=== PATIENT | male | born 1990 | race Two or more races ===

== ENCOUNTER 2019-04-18 19:00 | Inpatient (IN) | payer OTHER ==
[2019-04-18 20:15] VITALS: BP 112/65
[2019-04-18] MEDS ORDERED: ALBUTEROL SULFATE HFA 90 MCG/PUFF 8 GM INHALER IH PRN (23:45)
[2019-04-18] MEDS ORDERED: NICOTINE 14 MG/24 HOUR PATCH TD PRN (23:45)
[2019-04-18] MEDS ORDERED: PETROLATUM,WHITE 28 GM JELLY TP PRN (23:45)
[2019-04-18] MEDS ORDERED: MAG HYDROX/AL HYDROX/SIMETH ES 30 ML SUSPENSION UDCUP PO PRN (23:45)
[2019-04-18] MEDS ORDERED: LOPERAMIDE HCL 2 MG CAPSULE PO PRN (23:45)
[2019-04-18] MEDS ORDERED: ONDANSETRON HCL 4 MG TABLET PO PRN (23:45)
[2019-04-18] MEDS ORDERED: CloNIDine HCL 0.1 MG TABLET PO PRN (23:45)
[2019-04-18] MEDS ORDERED: DOCUSATE SODIUM 100 MG CAPSULE PO PRN (23:45)
[2019-04-18] MEDS ORDERED: GuaiFENesin/D-METHORPHAN [SUGAR-FREE] 200-20MG/10 ML SYRUP UDCUP PO PRN (23:45)
[2019-04-18] MEDS ORDERED: IBUPROFEN 400 MG TABLET PO PRN (23:45)
[2019-04-18] MEDS ORDERED: MAGNESIUM HYDROXIDE SUSPENSION 30 ML UDCUP PO PRN (23:45)
[2019-04-18] MEDS ORDERED: ACETAMINOPHEN 325 MG TABLET PO PRN (23:45)
[2019-04-19] VITALS (8 sets, daily range): BP systolic 94–123; BP diastolic 54–90
[2019-04-19 04:35] LABS: APPEARANCE,URINE CLOUDY (CLEAR); BILIRUBIN,URINE NEGATIVE (NEGATIVE); GLUCOSE, URINE (UA) NEGATIVE (NEGATIVE); KETONES,URINE NEGATIVE (NEGATIVE); LEUKOCYTE ESTERASE ,URINE NEGATIVE (NEGATIVE); NITRATE,URINE NEGATIVE (NEGATIVE); OCCULT BLOOD,URINE NEGATIVE (NEGATIVE); PH,URINE 6.5 (5.0-8.0); PROTEIN,URINE NEGATIVE (NEGATIVE)
[2019-04-19 04:51] LABS: AMPHET/METH SCREEN,URINE NEGATIVE (NEGATIVE); BARBITURATE SCREEN, URINE NEGATIVE (NEGATIVE); BENZODIAZEPINES SCREEN,URINE NEGATIVE (NEGATIVE); CANNABINOID SCREEN,URINE NEGATIVE (NEGATIVE); COCAINE SCREEN,URINE NEGATIVE (NEGATIVE); METHADONE SCREEN, URINE NEGATIVE (NEGATIVE); OPIATE SCREEN,URINE NEGATIVE (NEGATIVE); PHENCYCLIDINE SCREEN,URINE NEGATIVE (NEGATIVE)
[2019-04-19 08:10] LABS: BASOPHILS % (AUTO) 0.4 % (0.0-2.0); EOSINOPHILS % (AUTO) 1.2 % (1.0-6.0); HEMATOCRIT 41.9 % (41-53); HEMOGLOBIN 13.9 g/dL (13.5-17.5); LYMPHOCYTES # (AUTO) 1.7 K/uL (1.0-4.8); LYMPHOCYTES % (AUTO) 39.4 % (22.0-44.0); MEAN CORPUSCULAR HGB CONC 33.1 G/dL (31.0-37.0); MEAN CORPUSCULAR VOLUME 97 fL (80-100); MONOCYTES # (AUTO) 0.7 K/uL (0.1-1.0); MONOCYTES % (AUTO) 16.1 % (2.0-9.0); NEUTROPHILS # (AUTO) 1.9 K/uL (1.8-7.7); NEUTROPHILS % (AUTO) 42.9 % (40.0-70.0); PLATELET COUNT (AUTO) 162 K/uL (150-450); RED BLOOD CELL COUNT(AUTO) 4.33 MIL/uL (4.50-5.90); RED CELL DISTRIBUTION WIDTH 14.1 % (11.5-14.5)
[2019-04-19 08:45] LABS: ALANINE AMINOTRANSFERASE 25 U/L (12-78); ALBUMIN 3.6 g/dL (3.4-5.0); ALKALINE PHOSPHATASE 65 U/L (46-116); ANION GAP 8 mmol/L (8-16); ASPARTATE AMINOTRANSFERASE 20 U/L (15-37); BILIRUBIN,TOTAL 0.9 mg/dL (0.1-1.0); CALCIUM, TOTAL 8.9 mg/dL (8.8-10.5); CARBON DIOXIDE 28 mmol/L (22-29); CHLORIDE 106 mmol/L (98-107); CHOL/HDL RATIO 2.8 (4.2-7.3); CHOLESTEROL 115 mg/dL (131-200); CREATININE 0.74 mg/dL (0.60-1.30); GLOMERULAR FILTR. RATE CALC > 60 mL/min (>60); GLUCOSE,RANDOM 82 mg/dL (70-110); HDL CHOLESTEROL 41 mg/dL (40-60); LDL CHOL (CALC.) 66 mg/dL (0-130); POTASSIUM 4.3 mmol/L (3.5-5.1); SODIUM SERUM 142 mmol/L (136-145); TOTAL PROTEIN, SERUM 6.9 g/dL (6.4-8.2); TRIGLYCERIDES 42 mg/dL (15-150); UREA NITROGEN, BLOOD 10 mg/dL (7-18)
[2019-04-19] MEDS: FLUoxetine HCL 20 MG CAPSULE PO SCH (10:04)
[2019-04-19] MEDS: OLANZapine 5 MG TABLET PO SCH ×2 (10:04→20:37)
[2019-04-20 05:20] VITALS: BP 93/55
[2019-04-20 07:47] VITALS: BP 103/70
[2019-04-20] MEDS: FLUoxetine HCL 20 MG CAPSULE PO SCH (07:54)
[2019-04-20] MEDS: OLANZapine 5 MG TABLET PO SCH ×2 (07:54→19:52)
[2019-04-20 11:53] VITALS: BP 99/55
[2019-04-20 20:04] VITALS: BP 106/58
[2019-04-20 23:06] VITALS: BP 103/51
[2019-04-21 05:37] VITALS: BP 104/65
[2019-04-21 07:29] VITALS: BP 106/60
[2019-04-21] MEDS: OLANZapine 5 MG TABLET PO SCH (08:27)
[2019-04-21] MEDS: FLUoxetine HCL 20 MG CAPSULE PO SCH (08:27)
[2019-04-21 11:46] VITALS: BP 109/76
== END 2019-04-21 15:10 | DRG 885 ==
LOC: 6S 19:00
PROVIDERS: ADMIT Internal Medicine; ATTEND Internal Medicine
DX: F25.1 Schizoaffective disorder, depressive type (principal); R45.851 Suicidal ideations; D72.819 Decreased white blood cell count, unspecified; F19.10 Other psychoactive substance abuse, uncomplicated; Z79.899 Other long term (current) drug therapy
CPT/HCPCS: 80307; 83036; 84443

== ENCOUNTER 2020-09-17 11:02 | Inpatient (IN) | payer MEDICAID, OTHER ==
[~2020-09-17] VITALS: Ht 165.1 cm; Wt 59.0 kg
[2020-09-17 12:10] LABS: BASOPHILS % (AUTO) 0.2 % (0.0-2.0); EOSINOPHILS % (AUTO) 0.9 % (1.0-6.0); HEMOGLOBIN 13.5 g/dL (13.5-17.5); LYMPHOCYTES # (AUTO) 1.4 K/uL (1.0-4.8); LYMPHOCYTES % (AUTO) 16.6 % (22.0-44.0); MEAN CORPUSCULAR HEMOGLOBIN 31.2 pg (26.0-34.0); MEAN CORPUSCULAR HGB CONC 34.5 G/dL (31.0-37.0); MEAN CORPUSCULAR VOLUME 91 fL (80-100); MONOCYTES # (AUTO) 0.9 K/uL (0.1-1.0); MONOCYTES % (AUTO) 10.8 % (2.0-9.0); NEUTROPHILS # (AUTO) 6.1 K/uL (1.8-7.7); NEUTROPHILS % (AUTO) 71.5 % (40.0-70.0); PLATELET COUNT (AUTO) 235 K/uL (150-450); RED BLOOD CELL COUNT(AUTO) 4.31 MIL/uL (4.50-5.90); RED CELL DISTRIBUTION WIDTH 13.6 % (11.5-14.5)
[2020-09-17 12:23] LABS: AMPHET/METH SCREEN,URINE POSITIVE (NEGATIVE); BARBITURATE SCREEN, URINE NEGATIVE (NEGATIVE); BENZODIAZEPINES SCREEN,URINE NEGATIVE (NEGATIVE); CANNABINOID SCREEN,URINE NEGATIVE (NEGATIVE); COCAINE SCREEN,URINE NEGATIVE (NEGATIVE); METHADONE SCREEN, URINE NEGATIVE (NEGATIVE); OPIATE SCREEN,URINE NEGATIVE (NEGATIVE)
[2020-09-17 12:25] LABS: ANION GAP 9 mmol/L (8-16); CALCIUM, TOTAL 9.1 mg/dL (8.8-10.5); CARBON DIOXIDE 30 mmol/L (22-29); CHLORIDE 101 mmol/L (98-107); GLOMERULAR FILTR. RATE CALC > 60 mL/min (>60); GLUCOSE,RANDOM 123 mg/dL (70-110); POTASSIUM 3.5 mmol/L (3.5-5.1); SODIUM SERUM 140 mmol/L (136-145); UREA NITROGEN, BLOOD 19 mg/dL (7-18)
[2020-09-17 12:25] LABS: PHENCYCLIDINE SCREEN,URINE NEGATIVE (NEGATIVE)
[2020-09-17 12:32] LABS: ALANINE AMINOTRANSFERASE 25 U/L (12-78); ALBUMIN 3.3 g/dL (3.4-5.0); ALKALINE PHOSPHATASE 96 U/L (46-116); ASPARTATE AMINOTRANSFERASE 21 U/L (15-37); BILIRUBIN,TOTAL 0.5 mg/dL (0.1-1.0); TOTAL PROTEIN, SERUM 6.9 g/dL (6.4-8.2)
[2020-09-17] MEDS ORDERED: OLANZapine 5 MG TABLET PO ONE (12:45)
[2020-09-17] MEDS ORDERED: ZOLPIDEM TARTRATE 10 MG TABLET PO PRN (13:45)
[2020-09-17] MEDS ORDERED: HALOPERIDOL 5 MG TABLET PO PRN (13:45)
[2020-09-17] MEDS ORDERED: LORazepam 2 MG TABLET PO PRN (13:45)
[2020-09-17 15:03] LABS: COVID AG,FIA SOURCE NASOPHARYNGEAL
[2020-09-17 18:24] VITALS: BP 107/68
[2020-09-18 03:20] VITALS: BP 110/72
[2020-09-18 06:52] LABS: CHOL/HDL RATIO 3.2 (4.2-7.3)
[2020-09-18] MEDS ORDERED: PETROLATUM,WHITE 28 GM JELLY TP PRN (07:15)
[2020-09-18] MEDS ORDERED: ACETAMINOPHEN 325 MG TABLET PO PRN (07:15)
[2020-09-18] MEDS ORDERED: GuaiFENesin/D-METHORPHAN [SUGAR-FREE] 200-20MG/10 ML SYRUP UDCUP PO PRN (07:15)
[2020-09-18] MEDS ORDERED: ALBUTEROL SULFATE HFA 90 MCG/PUFF 8 GM INHALER IH PRN (07:15)
[2020-09-18] MEDS ORDERED: DOCUSATE SODIUM 100 MG CAPSULE PO PRN (07:15)
[2020-09-18] MEDS ORDERED: ONDANSETRON HCL 4 MG TABLET PO PRN (07:15)
[2020-09-18] MEDS ORDERED: LOPERAMIDE HCL 2 MG CAPSULE PO PRN (07:15)
[2020-09-18] MEDS ORDERED: NICOTINE 14 MG/24 HOUR PATCH TD PRN (07:15)
[2020-09-18] MEDS ORDERED: MAG HYDROX/AL HYDROX/SIMETH ES 30 ML SUSPENSION UDCUP PO PRN (07:15)
[2020-09-18] MEDS ORDERED: MAGNESIUM HYDROXIDE SUSPENSION 30 ML UDCUP PO PRN (07:15)
[2020-09-18] MEDS ORDERED: IBUPROFEN 400 MG TABLET PO PRN (07:15)
[2020-09-18] MEDS ORDERED: CloNIDine HCL 0.1 MG TABLET PO PRN (07:15)
[2020-09-18 16:00] VITALS: BP 122/65
[2020-09-18] MEDS: OLANZapine 5 MG TABLET PO SCH (20:22)
[2020-09-19] MEDS: OLANZapine 5 MG TABLET PO SCH ×2 (08:21→20:45)
[2020-09-19 08:29] VITALS: BP 108/61
[2020-09-19 16:22] VITALS: BP 108/83
[2020-09-20] MEDS: OLANZapine 5 MG TABLET PO SCH ×2 (08:24→20:53)
[2020-09-20 08:37] VITALS: BP 99/60
[2020-09-20 18:38] VITALS: BP 100/65
[2020-09-21] MEDS: OLANZapine 5 MG TABLET PO SCH ×2 (08:21→21:00)
[2020-09-21 09:58] VITALS: BP 98/60
[2020-09-21 16:00] VITALS: BP 106/56
[2020-09-22] MEDS: OLANZapine 5 MG TABLET PO SCH ×2 (08:15→21:04)
[2020-09-22 09:36] VITALS: BP 103/58
[2020-09-22 16:30] VITALS: BP 106/61
[2020-09-22 19:20] VITALS: BP 127/68
[2020-09-23] MEDS: OLANZapine 5 MG TABLET PO SCH (09:18)
[2020-09-23] MEDS ORDERED: OLAN5TAB2 PO (09:29)
== END 2020-09-23 14:11 | disposition short-term general hospital (02) | DRG 750 ==
LOC: EMS 11:02 → 3EI 13:32
DX: F25.1 Schizoaffective disorder, depressive type (principal); Z59.0 Homelessness; F15.10 Other stimulant abuse, uncomplicated; F41.9 Anxiety disorder, unspecified; F10.10 Alcohol abuse, uncomplicated; Y90.9 Presence of alcohol in blood, level not specified; F19.10 Other psychoactive substance abuse, uncomplicated; D64.9 Anemia, unspecified; R73.9 Hyperglycemia, unspecified; R45.851 Suicidal ideations; Z20.822 Contact with and (suspected) exposure to COVID-19
CPT/HCPCS: 87426; 99285; G0480

== ENCOUNTER 2020-10-15 17:05 | Inpatient (IN) | payer MEDICAID ==
[~2020-10-15] VITALS: Ht 175.3 cm; Wt 60.0 kg
[~2020-10-15 17:05] MED LIST: OLAN5TAB2 PO
[2020-10-15 17:55] LABS: COVID AG,FIA SOURCE NASOPHARYNGEAL
[2020-10-15 18:06] LABS: AMPHET/METH SCREEN,URINE POSITIVE (NEGATIVE); BARBITURATE SCREEN, URINE NEGATIVE (NEGATIVE); BENZODIAZEPINES SCREEN,URINE NEGATIVE (NEGATIVE); CANNABINOID SCREEN,URINE NEGATIVE (NEGATIVE); COCAINE SCREEN,URINE NEGATIVE (NEGATIVE); METHADONE SCREEN, URINE NEGATIVE (NEGATIVE); OPIATE SCREEN,URINE NEGATIVE (NEGATIVE)
[2020-10-15 18:07] LABS: PHENCYCLIDINE SCREEN,URINE NEGATIVE (NEGATIVE)
[2020-10-15 18:26] LABS: BASOPHILS % (AUTO) 0.6 % (0.0-2.0); EOSINOPHILS % (AUTO) 0.4 % (1.0-6.0); HEMOGLOBIN 14.7 g/dL (13.5-17.5); LYMPHOCYTES # (AUTO) 1.7 K/uL (1.0-4.8); LYMPHOCYTES % (AUTO) 20.3 % (22.0-44.0); MEAN CORPUSCULAR HEMOGLOBIN 30.8 pg (26.0-34.0); MEAN CORPUSCULAR HGB CONC 33.5 G/dL (31.0-37.0); MEAN CORPUSCULAR VOLUME 92 fL (80-100); MONOCYTES # (AUTO) 0.7 K/uL (0.1-1.0); NEUTROPHILS # (AUTO) 5.9 K/uL (1.8-7.7); NEUTROPHILS % (AUTO) 70.7 % (40.0-70.0); PLATELET COUNT (AUTO) 282 K/uL (150-450); RED BLOOD CELL COUNT(AUTO) 4.78 MIL/uL (4.50-5.90); RED CELL DISTRIBUTION WIDTH 13.9 % (11.5-14.5)
[2020-10-15 18:38] LABS: ANION GAP 10 mmol/L (8-16); CALCIUM, TOTAL 9.4 mg/dL (8.8-10.5); CARBON DIOXIDE 28 mmol/L (22-29); CHLORIDE 104 mmol/L (98-107); CREATININE 0.88 mg/dL (0.60-1.30); GLOMERULAR FILTR. RATE CALC > 60 mL/min (>60); GLUCOSE,RANDOM 121 mg/dL (70-110); POTASSIUM 3.8 mmol/L (3.5-5.1); SODIUM SERUM 142 mmol/L (136-145); UREA NITROGEN, BLOOD 23 mg/dL (7-18)
[2020-10-15 18:44] LABS: ALANINE AMINOTRANSFERASE 24 U/L (12-78); ALKALINE PHOSPHATASE 77 U/L (46-116); ASPARTATE AMINOTRANSFERASE 29 U/L (15-37); BILIRUBIN,TOTAL 1.7 mg/dL (0.1-1.0); TOTAL PROTEIN, SERUM 8.1 g/dL (6.4-8.2)
[2020-10-15] MEDS ORDERED: LORazepam 2 MG TABLET PO PRN (20:30)
[2020-10-15] MEDS ORDERED: ZOLPIDEM TARTRATE 10 MG TABLET PO PRN (20:30)
[2020-10-15] MEDS ORDERED: HALOPERIDOL 5 MG TABLET PO PRN (20:30)
[2020-10-16 00:16] VITALS: BP 97/71
[2020-10-16] MEDS ORDERED: INFLUENZA VIRUS VACCINE QVS 2020-21 (6MO+)/PF 60 MCG/0.5 ML SYRINGE IM ONE (05:30)
[2020-10-16] MEDS ORDERED: ONDANSETRON HCL 4 MG TABLET PO PRN (07:45)
[2020-10-16] MEDS ORDERED: IBUPROFEN 400 MG TABLET PO PRN (07:45)
[2020-10-16] MEDS ORDERED: MAGNESIUM HYDROXIDE SUSPENSION 30 ML UDCUP PO PRN (07:45)
[2020-10-16] MEDS ORDERED: ACETAMINOPHEN 325 MG TABLET PO PRN (07:45)
[2020-10-16] MEDS ORDERED: CloNIDine HCL 0.1 MG TABLET PO PRN (07:45)
[2020-10-16] MEDS ORDERED: PETROLATUM,WHITE 28 GM JELLY TP PRN (07:45)
[2020-10-16] MEDS ORDERED: GuaiFENesin/D-METHORPHAN [SUGAR-FREE] 200-20MG/10 ML SYRUP UDCUP PO PRN (07:45)
[2020-10-16] MEDS ORDERED: LOPERAMIDE HCL 2 MG CAPSULE PO PRN (07:45)
[2020-10-16] MEDS ORDERED: MAG HYDROX/AL HYDROX/SIMETH ES 30 ML SUSPENSION UDCUP PO PRN (07:45)
[2020-10-16] MEDS ORDERED: NICOTINE 14 MG/24 HOUR PATCH TD PRN (07:45)
[2020-10-16] MEDS ORDERED: ALBUTEROL SULFATE HFA 90 MCG/PUFF 8 GM INHALER IH PRN (07:45)
[2020-10-16] MEDS ORDERED: DOCUSATE SODIUM 100 MG CAPSULE PO PRN (07:45)
[2020-10-16 08:01] LABS: CHOL/HDL RATIO 2.4 (4.2-7.3)
[2020-10-16 08:33] VITALS: BP 125/89
[2020-10-16] MEDS: OLANZapine 5 MG TABLET PO SCH ×2 (12:30→21:04)
[2020-10-16 16:19] VITALS: BP 100/60
[2020-10-17 06:37] VITALS: BP 112/72
[2020-10-17] MEDS: OLANZapine 5 MG TABLET PO SCH ×2 (08:41→20:11)
[2020-10-17 08:55] VITALS: BP 102/65
[2020-10-17 16:16] VITALS: BP 105/60
[2020-10-18 06:06] VITALS: BP 102/63
[2020-10-18 08:21] VITALS: BP 101/60
[2020-10-18] MEDS: OLANZapine 5 MG TABLET PO SCH (08:36)
[2020-10-18 16:38] VITALS: BP 111/71
[2020-10-18] MEDS: OLANZapine 10 MG TABLET PO SCH (20:12)
[2020-10-19 00:20] VITALS: BP 106/68
[2020-10-19 08:22] VITALS: BP 104/60
[2020-10-19] MEDS: OLANZapine 10 MG TABLET PO SCH ×2 (08:59→21:55)
[2020-10-19 09:12] LABS: HEMOGLOBIN A1C 5.2 % (3.8-5.6)
[2020-10-19 09:35] LABS: FREE T4 (FREE THYROXINE) 0.9 ng/dL (0.76-1.46); THYROID STIMULATING HORMONE 0.78 uIU/mL (0.36-3.74)
[2020-10-19 16:19] VITALS: BP 110/62
[2020-10-20 05:15] VITALS: BP 111/52
[2020-10-20 08:43] VITALS: BP 118/67
[2020-10-20 08:43] LABS: COVID AG,FIA SOURCE NASOPHARYNGEAL
[2020-10-20] MEDS: OLANZapine 10 MG TABLET PO SCH ×2 (08:54→20:58)
[2020-10-20 17:29] VITALS: BP 120/67
[2020-10-21 00:56] VITALS: BP 106/62
[2020-10-21 08:44] VITALS: BP 117/65
[2020-10-21] MEDS: OLANZapine 10 MG TABLET PO SCH ×2 (08:50→20:22)
[2020-10-21 16:24] VITALS: BP 116/73
[2020-10-22 00:28] VITALS: BP 126/81
[2020-10-22 08:25] VITALS: BP 115/66
[2020-10-22] MEDS: OLANZapine 10 MG TABLET PO SCH (08:28)
[2020-10-22] MEDS ORDERED: OLAN10TA20 PO (10:25)
== END 2020-10-22 12:15 | disposition home or self-care (01) | DRG 750 ==
LOC: EMS 17:06 → B2S 20:25
DX: F25.1 Schizoaffective disorder, depressive type (principal); F15.10 Other stimulant abuse, uncomplicated; R73.9 Hyperglycemia, unspecified; K21.9 Gastro-esophageal reflux disease without esophagitis; Z59.0 Homelessness; Z20.822 Contact with and (suspected) exposure to COVID-19
CPT/HCPCS: 83036; 84439; 84443; 87081; 87426; 90686; 99285; G0480